=== PATIENT | male | born 1995 | race Two or more races ===

== ENCOUNTER 2024-05-08 18:48 | Emergency (ER) | payer OTHER ==
[~2024-05-08] VITALS: Ht 167.6 cm; Wt 82.6 kg
[2024-05-08] MEDS ORDERED: KETOROLAC TROMETHAMINE 60 MG VIAL IM ONE (19:15)
[2024-05-08] MEDS ORDERED: ORPHENADRINE CITRATE 30 MG/ML AMPUL IM ONE (19:15)
== END 2024-05-08 19:53 | disposition home or self-care (01) ==
LOC: ER 18:50
DX: M54.50 Low back pain, unspecified (principal)
CPT/HCPCS: 96372; 99282; J1885; J2360